=== PATIENT | male | born 1960 | race Caucasian/White ===

== ENCOUNTER 2017-09-01 06:37 | Day surgery (SDC) | payer OTHER ==
[~2017-09-01] VITALS: Ht 182.9 cm; Wt 94.3 kg
[2017-09-01] MEDS ORDERED: EPINEPHRINE 1 MG/ML, 1ML ONE (06:39)
[2017-09-01] MEDS ORDERED: OXYMETAZOLINE NASAL SPRAY 0.05%, 15ML ONE (06:39)
[2017-09-01] MEDS ORDERED: LIDOCAINE 1%, 50ML ONE (06:39)
[2017-09-01] MEDS ORDERED: NEO/BACI/POLY/HC OINT 15GM ONE (06:39)
[2017-09-01] MEDS ORDERED: NO MEDS PER PT (07:22)
[2017-09-01] MEDS ORDERED: LACTATED RINGERS 1,000 ML IV SCH (07:22)
[2017-09-01 07:23] VITALS: BP 135/91
[2017-09-01] MEDS ORDERED: SCOPOLAMINE PATCH, 1.5MG PATCH.TD72 TD ONE ×2 (07:54→08:00)
[2017-09-01] MEDS ORDERED: MIDAZOLAM 1 MG/ML, 2ML ONE (08:31)
[2017-09-01] MEDS ORDERED: FENTANYL PF 100 MCG/2ML ONE ×2 (08:32)
[2017-09-01] MEDS ORDERED: TRIAMCINOLONE ACETONIDE 40 MG/ML, 1ML ONE (08:49)
[2017-09-01] MEDS ORDERED: ALBUTEROL SULFATE 2.5 MG/3 ML NPPB PRN (09:30)
[2017-09-01] MEDS ORDERED: HYDROmorphone 1 MG/ML, 1ML IV PRN (09:30)
[2017-09-01] MEDS ORDERED: PROMETHAZINE 12.5 MG SUPP PR PRN (09:30)
[2017-09-01] MEDS ORDERED: EPHEDRINE 50 MG/ML, 1ML IVPush PRN (09:30)
[2017-09-01] MEDS ORDERED: MIDAZOLAM 1 MG/ML, 2ML IV PRN (09:30)
[2017-09-01] MEDS ORDERED: PROMETHAZINE 25 MG/ML, 1ML IV PRN (09:30)
[2017-09-01] MEDS ORDERED: DIAZEPAM 5 MG/ML, 2ML IVPush PRN (09:30)
[2017-09-01] MEDS ORDERED: HYDROcodone/APAP 7.5-325MG/15ML UDC PO PRN (09:30)
[2017-09-01] MEDS ORDERED: METOPROLOL 1 MG/ML, 5ML IV PRN (09:30)
[2017-09-01] MEDS ORDERED: ACETAMINOPHEN 325 MG TABLET PO PRN (09:30)
[2017-09-01] MEDS ORDERED: OXYcodone 5 MG/5 ML ORAL.SOL UDC PO PRN (09:30)
[2017-09-01] MEDS ORDERED: LABETALOL 5MG/ML, 20ML IV PRN (09:30)
[2017-09-01] MEDS ORDERED: hydrALAzine 20 MG/ML, 1ML IV PRN (09:30)
[2017-09-01] MEDS ORDERED: ONDANSETRON 2MG/ML, 2ML IVPush PRN (09:30)
[2017-09-01] MEDS ORDERED: FENTANYL PF 100 MCG/2ML IV PRN (09:30)
[2017-09-01] MEDS ORDERED: MEPERIDINE/PF 25MG/0.5ML IVPush PRN (09:30)
[2017-09-01] MEDS ORDERED: SUCCINYLCHOLINE 20 MG/ML, 10ML ONE (09:37)
[2017-09-01] MEDS ORDERED: ROCURONIUM 10 MG/ML,10ML ONE (09:37)
[2017-09-01] MEDS ORDERED: DEXAMETHASONE 4 MG/ML, 1ML ONE (09:37)
[2017-09-01] MEDS ORDERED: PROPOFOL 10 MG/ML, 20ML ONE (09:37)
[2017-09-01] MEDS ORDERED: CEFAZOLIN 1,000 MG ONE (09:37)
[2017-09-01] MEDS ORDERED: ONDANSETRON 2MG/ML, 2ML ONE (09:37)
== END 2017-09-01 11:15 ==
LOC: OUT 06:37
PROVIDERS: ATTEND Otolaryngology
DX: J32.4 Chronic pansinusitis (principal); J33.9 Nasal polyp, unspecified; B47.9 Mycetoma, unspecified
CPT/HCPCS: 31255; 31267; 31276; 31287; 88305; J0171; J0330; J0690; J1100; J2250; J2405; J2704; J3010; J3301; J3490; J7120; S1090